=== PATIENT | male | born 1970 | race Caucasian/White ===

== ENCOUNTER 2019-04-04 16:50 | Emergency (ER) | payer BC ==
[~2019-04-04] VITALS: Ht 170.2 cm; Wt 93.0 kg
[2019-04-04] MEDS ORDERED: K-TAB10 MEQ PO (18:05)
[2019-04-04] MEDS ORDERED: LASIX20 MG PO (18:05)
== END 2019-04-04 18:14 | disposition home or self-care (01) ==
LOC: ED 16:50
DX: R60.0 Localized edema (principal); F32.9 Major depressive disorder, single episode, unspecified; Z87.891 Personal history of nicotine dependence
CPT/HCPCS: 99284

== ENCOUNTER 2019-05-10 22:42 | Emergency (ER) | payer BC ==
[~2019-05-10] VITALS: Ht 170.2 cm; Wt 99.8 kg
[~2019-05-10 22:42] MED LIST: K-TAB10 MEQ PO; LASIX20 MG PO
[2019-05-10] MEDS ORDERED: AUGMENTIN 875-1 EACH PO (23:53)
== END 2019-05-11 00:33 | disposition home or self-care (01) ==
LOC: ED 22:42
DX: S51.851A Open bite of right forearm, initial encounter (principal); S80.872A Other superficial bite, left lower leg, initial encounter; W54.0XXA Bitten by dog, initial encounter
CPT/HCPCS: 90471; 90715; 99283-25; A9270

== ENCOUNTER 2020-06-02 01:11 | Emergency (ER) | payer BC ==
[~2020-06-02] VITALS: Ht 170.2 cm; Wt 97.5 kg
[~2020-06-02 01:11] MED LIST changes: +AUGMENTIN 875-1 EACH PO
[2020-06-02] MEDS ORDERED: AUGMENTIN 875-1 EACH PO (01:50)
== END 2020-06-02 02:28 | disposition home or self-care (01) ==
LOC: ED 01:11
DX: K08.89 Other specified disorders of teeth and supporting structures (principal); F17.200 Nicotine dependence, unspecified, uncomplicated
CPT/HCPCS: 99282

== ENCOUNTER 2020-07-08 21:07 | Day surgery (SDC) | payer BC ==
[~2020-07-08] VITALS: Ht 170.2 cm; Wt 99.8 kg
--- NOTE | ~2020-07-08 | OR ---
[facility] [address], [place] [address] Draft DATE OF OPERATION: 07/08/2020 SURGEON: Nasim Quispe MD TIME: 11:15 p.m. PREOPERATIVE DIAGNOSIS: Food impaction (steak), complete obstruction. POSTOPERATIVE DIAGNOSIS: Food impaction (steak), complete obstruction. PROCEDURES: 1. Esophagogastroduodenoscopy with explantation of impacted food foreign body. 2. Biopsies of esophagus to assess for eosinophilic esophagitis. ANESTHESIA: General endotracheal, Christian Ewing CRNA. INDICATIONS: This 50-year-old white man presented to the emergency room after having a steak dinner on his birthday this evening. He ate about nine o'clock he says. He presented to the emergency room, was evaluated by Dr. Colby with clinical findings consistent with food impaction of the esophagus. Glucagon was administered and unsuccessful and a COVID test was obtained, subsequently found to be negative. He is admitted at this time to undergo disimpaction of the esophagus of foreign body. He understands the risks of bleeding, infection, and perforation and wished to proceed. A general endotracheal anesthetic is deemed appropriate by the conveyor attendant based on safety of his airway. FINDINGS: Food was impacted in the distal to mid esophagus to be sure. It was explanted with a three prong grasper applied on at least three and possibly four passes. Considerable amount of beef was removed which was stringy indicative of somewhat incomplete chewing. There is no actual stricture of the esophagus. I did not see particularly. Biopsies were obtained to assess for eosinophilic esophagitis, however. Stomach and duodenum were normal. There was only minimal residual fluid in the stomach. Retroflexed view showed a reasonable flap valve. DESCRIPTION OF PROCEDURE: PATIENT NAME: ANDRE ELENA OPERATIVE REPORT DATE OF : 70 REPORT #: [id number] PHYSICIAN: NASIM QUISPE MD PCP: ARAVIND ORTEGA MD REPORT IS CONFIDENTIAL AND NOT TO BE RELEASED WITHOUT AUTHORIZATION [facility] [address], [place] [address] Draft The patient was brought to the endoscopy suite in the supine position, was given a general endotracheal anesthetic. A plethoric airway was noted and intubation did require an obturator as might be expected. After satisfactory general endotracheal anesthesia, a bite block was placed. He was allowed to remain in the supine position. An Olympus video upper endoscope was passed by hypopharynx and into the esophagus. The proximal mid esophagus looked normal in the distal portion, was obvious food impaction. A three prong grasper was used to grab a sizable bolus of meat and it was explanted along with the scope. The scope was reintroduced additional times allowing for clearance of the food impaction, which consisted only of beef as far as could be told. Once a final bolus was removed, the scope was advanced again and passed through the GE junction into the stomach. The stomach and duodenum appeared normal. Retroflexed view showed no sign of sizable hiatal hernia. Careful inspection of the distal esophageal mucosa showed no evidence of Luciano's epithelium, no neoplasm and no stricture. Suggestion is high that this may represent a eosinophilic esophagitis type etiology for his dysphagia. Biopsies were taken of the distal esophagus and mid esophagus to prove or refute that. Further withdrawal of scope showed no other abnormalities. The patient was taken to recovery room after extubation in good condition. There was no blood loss and no known complication. ASSESSMENT: Food impaction with steak, long-standing episodic dysphagia. PLAN: We will start PPI medication. We will be waiting for pathology report to return so as to determine if topical steroid therapy would be indicated if this should be related to eosinophilic esophagitis. We will see him back in the office in 4 to 6 weeks and review his progress. For the next 24 hours, liquids only would be recommended for oral intake. MD VASU Calix/LILIL /[id number] cc: Rashad Colby MD PATIENT NAME: ANDRE ELENA OPERATIVE REPORT DATE OF : 70 REPORT #: [id number] PHYSICIAN: NASIM QUISPE MD PCP: ARAVIND ORTEGA MD REPORT IS CONFIDENTIAL AND NOT TO BE RELEASED WITHOUT AUTHORIZATION [facility] [address], [place] [address] Draft Copies: RASHAD COLBY MD ~ PATIENT NAME: ANDRE ELENA Lisha OPERATIVE REPORT DATE OF : 70 REPORT #: [id number] PHYSICIAN: NASIM QUISPE MD PCP: ARAVIND ORTEGA MD REPORT IS CONFIDENTIAL AND NOT TO BE RELEASED WITHOUT AUTHORIZATION
--- NOTE | ~2020-07-08 | CONS ---
[facility] [address] [place], [place] [address] Draft DATE OF CONSULTATION: 07/08/2020 TIME: 10:15 p.m. PROBLEM: Food impaction midesophagus, probable steak. HISTORY OF PRESENT ILLNESS: This 50-year-old white man celebrating his birthday today with a steak dinner. After about three bites, he had the onset of obstruction of his esophagus generally localized at the region of the suprasternal notch. This was about 9:00 p.m. He presented to the emergency room where he was evaluated by Dr. Colby and was administered glucagon, which was of no benefit in relieving his clinical obstruction. He has had some hypersalivation. He has no associated chest pain. No fever, chills, or diaphoresis. The patient has had food impaction problem about 20 years ago. He denies chronic reflux symptoms or reflux disease otherwise. The patient has not had COVID-19 infection though he additionally has not undergone vaccination; he "has not had time." The patient works at the [employer] in [place], though he lives in [place]. He is . He has had six children. One daughter at age 17, for reasons he cannot elaborate on. He is accompanied by his brother at this time. REVIEW OF SYSTEMS: He denies any hematemesis or blood per rectum. He has had previous episodes of dysphagia, which generally passed with ingestion of fluids. He denies any prior history of hematemesis or blood per rectum. He denies any family history of esophageal cancer. PHYSICAL EXAMINATION: GENERAL: Pleasant white man, who looks to be in no acute distress. VITAL SIGNS: Show a temperature of 98.8, pulse 91, blood pressure 150/99, O2 saturation 96% on room air. His only lab is a COVID test which is as of this time still pending. HEENT: Trachea is midline. CHEST: Clear. HEART: Regular without murmur. ABDOMEN: Somewhat obese, but soft. There is no palpable mass, ascites, or tenderness. EXTREMITIES: Show no clubbing, cyanosis, or edema. ASSESSMENT: The patient has apparently food impaction of the esophagus related to his birthday PATIENT NAME: ANDRE ELENA CONSULTATION DATE OF : 70 REPORT #: [id number] PHYSICIAN: NASIM QUISPE MD PCP: ARAVIND ORTEGA MD REPORT IS CONFIDENTIAL AND NOT TO BE RELEASED WITHOUT AUTHORIZATION [facility] [address] [place], [place] [address] Draft dinner this evening. He had very little to eat prior to the obstruction itself and I do not believe his stomach is inordinately full. He appears not to be clearing the obstruction clinically and despite administration of glucagon for relaxation of the esophageal sphincter. Upper endoscopy is indicated to better characterize the problem and extract or in someway remove the obstructing foreign body. The risk of bleeding, infection, and perforation were reviewed in great detail. He understands and wished to proceed. He has no implanted joints or other strong indication to require antibiotic therapy at this time. We will anticipate upper endoscopy nearly as possible time mindful his COVID test has been obtained and is pending. As most if not all of our operative team have been vaccinated, the pressing issue of COVID-19 negative test is less. Indeed, even if he was positive for COVID, one would proceed with this urgent intervention. MD VASU Calix/LUIS MANUEL /[id number] cc: Rashad Colby MD Copies: RASHAD COLBY MD ~ PATIENT NAME: ANDRE ELENA CONSULTATION DATE OF : 70 REPORT #: [id number] PHYSICIAN: NASIM QUISPE MD PCP: ARAVIND ORTEGA MD REPORT IS CONFIDENTIAL AND NOT TO BE RELEASED WITHOUT AUTHORIZATION
--- NOTE | 2020-07-08 23:31 | NUR ---
07/08/20 2331 Bessy Pan 2319- PT ARRIVES TO PACU. PT IS COUGHING FREQUENTLY. OXYGEN SAT HIGH 80'S ON RA. PT ENCOURAGED TO TAKE DEEP BREATHS AND COUGHING. PT PLACED ON 2L VIA CO2 NC. 2325- DR. QUISPE AT THE BEDSIDE TO TALK WITH THE PT. 233- DR. QUISPE BACK AT THE BEDSIDE TO TALK WITH THE PT. NEW ORDER RECEIVED.
--- NOTE | 2020-07-09 00:24 | NUR ---
PT TO FLOOR @1112. WET COUGH NOTED, ARVIND Reynolds, CATALYST OPERATOR GASOLINE, STATES THAT PT IS COUGHING HAS DECREASED SINCE SURGERY. ARRIVED ON THE FLOOR ON 2 L, SATING @99. TURNED TO 1L, SATS 94. @ THIS TIME PT IS ON RA, SATS 95. DRANK 2 CUPS APPLE JUICE, DENIES DISCOMFORT WITH COUGHING, OR DRINKING. IS A DAILY SMOKER. PROTONIX ADM. PER MARS. LR CONTINUES TO INFUSE. CALL LIGHT WITHIN REACH AT THIS TIME.
--- NOTE | 2020-07-09 00:46 | NUR ---
PATIENT URINATED 625 ML IN THE URINAL.
--- NOTE | 2020-07-09 01:14 | NUR ---
PT DISCHARGED. AMBULATED OUTSIDE WITH RN. DENIES CONCERNS. AWARE TO CONTACT DR QUISPE OFFICE TO SCHEDULE APPOINTMENT, WELL TAKE PERSCRIPTION TO PHARMACY. PT ALSO ENCOURAGED TO SCHEDULE APPOINTMENT WITH PRIMARY RELATED TO BLOOD PRESSURES.
== END 2020-07-09 01:14 | disposition home or self-care (01) ==
LOC: ED 21:07 → DS 22:24 → MS 22:24 → DS 07-09 01:14
PROVIDERS: ATTEND Surgery
PROC: 0DB58ZX Excision of Esophagus, Via Natural or Artificial Opening Endoscopic, Diagnostic (ICD-10-PCS; 2020-07-08)
PROC: 0DC58ZZ Extirpation of Matter from Esophagus, Via Natural or Artificial Opening Endoscopic (ICD-10-PCS; principal; 2020-07-08 22:41)
DX: T18.128A Food in esophagus causing other injury, initial encounter (principal); F17.210 Nicotine dependence, cigarettes, uncomplicated; R13.10 Dysphagia, unspecified; Z20.822 Contact with and (suspected) exposure to COVID-19; X58.XXXA Exposure to other specified factors, initial encounter
CPT/HCPCS: C9803; J1100; J1610; J2001; J2405; J2704; J3010; J7030; J7121; U0003

== ENCOUNTER 2021-06-05 21:06 | Emergency (ER) | payer BC ==
[~2021-06-05] VITALS: Ht 170.2 cm; Wt 109.8 kg
== END 2021-06-06 00:01 | disposition home or self-care (01) ==
LOC: ED 21:06
DX: T18.198A Other foreign object in esophagus causing other injury, initial encounter (principal); F17.200 Nicotine dependence, unspecified, uncomplicated; Z20.822 Contact with and (suspected) exposure to COVID-19
CPT/HCPCS: 36415; 70491; 80048; 85025; 99284-25; J1610; Q9967; U0003

== ENCOUNTER 2022-07-21 20:50 | Emergency (ER) | payer BC ==
[~2022-07-21] VITALS: Ht 170.2 cm; Wt 111.6 kg
[2022-07-21] MEDS ORDERED: ATORVASTATIN CA40 MG PO (20:57)
[2022-07-21 22:10] VITALS: BP 128/90
== END 2022-07-21 22:10 | disposition home or self-care (01) ==
LOC: ED 20:50
DX: T18.128A Food in esophagus causing other injury, initial encounter (principal); F17.200 Nicotine dependence, unspecified, uncomplicated; Z79.899 Other long term (current) drug therapy
CPT/HCPCS: 71045; J1610; J7030

== ENCOUNTER 2022-08-11 21:52 | Emergency (ER) | payer BC ==
[~2022-08-11] VITALS: Ht 170.2 cm; Wt 110.9 kg
[~2022-08-11 21:52] MED LIST changes: +ATORVASTATIN CA40 MG PO
--- OUTSIDE RECORDS SUMMARY | 2022-08-11 22:00 | XMS ---
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 Marce VISIT COUNT (12 MO.) 2 [facility] TOTAL 2 NOTE: Visits indicate total known visits. ED/UCC VISIT TRACKING (12 MO.) 08/11/2022 21:53 [facility] [place] TYPE: Emergency COMPLAINT: - FOOD STUCK IN THROAT 07/21/2022 20:50 [facility] [place] TYPE: Emergency COMPLAINT: - FOOD STUCK IN THROAT DIAGNOSES: - Food in esophagus causing other injury, initial encounter - Nicotine dependence, unspecified, uncomplicated - Other jail (current) drug therapy INPATIENT VISIT TRACKING (12 MO.) No inpatient visits to display in this time frame [email or web address]
[2022-08-11 23:00] VITALS: BP 132/106
== END 2022-08-11 23:06 | disposition home or self-care (01) ==
LOC: ED 21:52
DX: T18.128A Food in esophagus causing other injury, initial encounter (principal); F17.200 Nicotine dependence, unspecified, uncomplicated; Z79.899 Other long term (current) drug therapy
CPT/HCPCS: 99283